=== PATIENT | male | born 1980 | race Two or more races ===

== ENCOUNTER 2023-07-18 02:16 | Emergency (ER) | payer OTHER ==
[~2023-07-18] VITALS: Ht 175.3 cm; Wt 124.0 kg
[2023-07-18] MEDS ORDERED: IOHEXOL 350 MG/ML 100ML IJ ONE (02:50)
[2023-07-18 02:59] LABS: Basophils # (auto) 0.1 10 ^3/uL (0-0.2); Basophils % (auto) 0.8 % (0.0-2.0); Eosinophils # (auto) 0.3 10 ^3/uL (0-0.8); Hematocrit 49.2 % (41.0-53.0); Hemoglobin 17.2 g/dL (13.5-17.5); Lymphocytes # (auto) 3.8 10 ^3/uL (0.4-5.4); Mean Corpuscular Hemoglobin 29.7 pg (28.0-32.0); Mean Corpuscular Hgb Conc. 34.9 g/dL (32.0-36.0); Mean Corpuscular Volume 84.9 fL (80.0-100.0); Monocytes # (auto) 0.7 10 ^3/uL (0-1.3); Monocytes % (auto) 7.2 % (0.0-12.0); Neutrophils # (auto) 4.9 10 ^3/uL (1.6-8.6); Nucleated Red Blood Cells % 0.2 %; Red Blood Cells 5.79 10^6/uL (4.5-5.90); Red Cell Distribution Width 13.2 % (11.8-14.3); White Blood Cell 9.7 10^3/uL (4.4-10.8)
[2023-07-18] MEDS ORDERED: MORPHINE SULFATE 4 MG/ML SYR/VIAL IV ONE (03:00)
[2023-07-18] MEDS ORDERED: ONDANSETRON HCL 4 MG/2 ML VIAL IV ONE ×2 (03:00→03:45)
[2023-07-18 03:08] VITALS: PULSE 91; RESP 16; O2SAT 97
[2023-07-18 03:33] LABS: Urine Bacteria NONE SEEN /hpf (None Seen); Urine Blood 1+ /uL (Negative); Urine Clarity Clear (Clear); Urine Color Yellow (Yellow); Urine Mucus FEW (None Seen); Urine Protein, UAD 3+ (Negative); Urine Specific Gravity 1.025 (1.001-1.035); Urine Urobilinogen Normal (Negative); Urine WBC 1 /hpf (0 - 3)
[2023-07-18] MEDS: HYDROmorphone HCL 2 MG/ML VL/or syr IV ONE ×2 (03:39→03:40)
[2023-07-18 03:54] LABS: Potassium 3.9 mmol/L (3.5-5.1)
[2023-07-18 03:58] LABS: BUN/Creatinine Ratio 10.9 (10.0-20.0); Bilirubin, Total 0.6 mg/dL (0.2-1.0); Total Protein 8.2 g/dL (6.4-8.2)
[2023-07-18] MEDS ORDERED: hydrALAZINE HCL 20 MG/ML VL IV ONE (04:45)
[2023-07-18 07:40] VITALS: BP 144/87; PULSE 88; RESP 17; TEMP 98.3; O2SAT 94
[2023-07-18 08:00] VITALS: PULSE 83
[2023-07-18] MEDS ORDERED: ZOFR4T PO (08:58)
[2023-07-18] MEDS ORDERED: NAPR-1334 PO (08:58)
== END 2023-07-18 09:07 | disposition home or self-care (01) ==
LOC: ER 02:20
DX: R31.29 Other microscopic hematuria (principal); R10.13 Epigastric pain; N20.0 Calculus of kidney; E11.9 Type 2 diabetes mellitus without complications; I10 Essential (primary) hypertension
CPT/HCPCS: 36415; 74175; 80053; 81001; 83690; 85025; 93005; 96374; 96375; 96376; 99285; J0360; J1170; J2270; J2405; Q9967